=== PATIENT | male | born 1955 | race Caucasian/White ===

== ENCOUNTER → 2022-01-28 15:21 | Outpatient (CLI) | payer MEDICARE, OTHER, SELFPAY | PROVIDERS: PCP Family Medicine; Visit Provider Urology | DX: R31.29 Other microscopic hematuria (principal); R82.81 Pyuria; R39.9 Unspecified symptoms and signs involving the genitourinary system; Z87.440 Personal history of urinary (tract) infections; Z86.19 Personal history of other infectious and parasitic diseases; Z87.898 Personal history of other specified conditions; Z80.42 Family history of malignant neoplasm of prostate | CPT/HCPCS: 51798; 81002; 87086; 99214 ==

== ENCOUNTER → 2022-02-01 10:37 | Outpatient (CLI) | payer MEDICARE, OTHER, SELFPAY ==
[2022-02-01 11:52] LABS: BUN Creatinine Ratio 22.8 (6-22); Blood Urea Nitrogen 23 mg/dL (9-20); Calcium 9.6 mg/dL (8.4-10.2); Carbon Dioxide 29 mmol/L (22-32); Chloride 98 mmol/L (98-107); Estimated Glomerular Filt Rate > 60 mL/min (>60); Glucose 203 mg/dL (80-110); HEMOLYSIS < 15 (0-50); Potassium 4.9 mmol/L (3.4-5.1); Sodium 138 mmol/L (137-145)
== END ==
PROVIDERS: PCP Family Medicine; Referring Provider Urology; Visit Provider Urology
DX: R31.29 Other microscopic hematuria (principal)
CPT/HCPCS: 36415; 80048

== ENCOUNTER → 2022-02-01 10:39 | Outpatient (CLI) | payer MEDICARE, OTHER, SELFPAY ==
--- NOTE | 2022-02-01 12:00 | DI.CT.S_ITS ---
PROCEDURE: CT ABDOMEN PELVIS WO/W CON INDICATIONS: Microscopic hematuria and persistent urinary tract infection TECHNIQUE: Optional 5 mm thick noncontrast images acquired from the diaphragm to the symphysis pubis. After the administration of intravenous contrast, 5 mm thick images acquired from the diaphragm to the symphysis pubis after a 10-minute delay. 2 mm thick coronal and sagittal reformats were then performed of the kidneys and ureters. For radiation dose reduction, the following was used: automated exposure control, adjustment of mA and/or kV according to patient size. COMPARISON: None. FINDINGS: Image quality: Excellent. Lung bases: Lung bases are clear. Mild cardiomegaly. At least moderate coronary artery calcifications. Urinary system: Both kidneys are normal in size, without hydronephrosis or nephrolithiasis on pre-contrast images. No perinephric fat stranding. There is normal bilateral renal enhancement. Renal calyces appear normal in morphology when filled with contrast. Opacified portions of both ureters demonstrate normal caliber. There is minimal or no bladder wall thickening. There is a large bladder stone which measures 1.5 x 2.2 cm in diameter. It has Hounsfield measurement is 530. Prostate is enlarged. Other solid organs: Liver is normal in size and enhancement. Diffuse fatty infiltration of the liver. Gallbladder is unremarkable without calcified gallstones. . Biliary system is non dilated. Pancreas enhances normally. Spleen is normal in size and enhancement. No adrenal nodules. Peritoneum and bowel: Bowel loops demonstrate normal wall thickness and caliber. Mild diverticulosis without evidence of diverticulitis. No free fluid or air. Nodes and vessels: No retroperitoneal or mesenteric adenopathy by size criteria. Aorta and inferior vena cava are normal in size. Abdominal wall: No ventral hernias. Pelvis: No pathologic free pelvic fluid. No inguinal hernias or adenopathy. Bones: No suspicious bony lesions. No vertebral body compression fractures. IMPRESSION: 1. No renal stone, ureteral stone, hydronephrosis, or findings suspicious for malignancy. 2. Despite the fact that there is minimal or no bladder wall thickening, there is a large calcified bladder stone. 3. Enlarged prostate. 4. Diffuse hepatic steatosis. 5. Mild cardiomegaly, moderate coronary artery calcifications. Dictated by: Prem Hernandez M.D. on 02/01/2022 at 15:47 Approved by: Prem Hernandez M.D. on 02/01/2022 at 15:52
== END ==
PROVIDERS: PCP Family Medicine; Referring Provider Urology; Visit Provider Urology
DX: N39.0 Urinary tract infection, site not specified (principal); N21.0 Calculus in bladder; R31.29 Other microscopic hematuria; N40.0 Benign prostatic hyperplasia without lower urinary tract symptoms; K76.0 Fatty (change of) liver, not elsewhere classified; I51.7 Cardiomegaly; I25.10 Atherosclerotic heart disease of native coronary artery without angina pectoris
CPT/HCPCS: 36415; 74178; 80048; Q9967

== ENCOUNTER → 2022-02-02 13:56 | Outpatient (CLI) | payer MEDICARE, OTHER, SELFPAY ==
[2022-02-02 14:14] LABS: Appearance Urine UA SL CLOUDY; Bilirubin Urine UA NEGATIVE (NEGATIVE); Color Urine UA YELLOW; Glucose Urine UA NEGATIVE (Negative); Ketones Urine UA NEGATIVE (NEGATIVE); Leukocyte Esterase Urine UA 2+ (NEGATIVE); Nitrite Urine UA POSITIVE (Negative); Occult Blood Urine UA TRACE-INTACT (Negative); Protein Urine UA TRACE (Negative); Urobilinogen Urine UA 0.2 E.U./dL (0.2); pH Urine UA 6.5 (4.5-8.0)
[2022-02-02 14:33] LABS: Bacteria Urine Many (>30); Culture Indicated Urine Specimen Cultured; RBC Urine 0-1/HPF (0-5/HPF); WBC Urine 30-100/HPF (0-5/HPF)
== END ==
PROVIDERS: PCP Family Medicine; Referring Provider Urology; Visit Provider Urology
DX: R31.29 Other microscopic hematuria (principal)
CPT/HCPCS: 81001; 87086

== ENCOUNTER → 2022-02-10 11:06 | Outpatient (CLI) | payer MEDICARE, OTHER, SELFPAY ==
[2022-02-10 11:24] LABS: Appearance Urine UA SL CLOUDY; Bilirubin Urine UA NEGATIVE (NEGATIVE); Color Urine UA YELLOW; Glucose Urine UA TRACE g/dL (Negative); Ketones Urine UA NEGATIVE (NEGATIVE); Leukocyte Esterase Urine UA 1+ (NEGATIVE); Nitrite Urine UA POSITIVE (Negative); Occult Blood Urine UA 3+ (Negative); Protein Urine UA TRACE (Negative); Urobilinogen Urine UA 0.2 E.U./dL (0.2)
[2022-02-10 11:45] LABS: Bacteria Urine Many (>30); Culture Indicated Urine Specimen Cultured; RBC Urine 10-30/HPF (0-5/HPF); Squamous Epithelial Cell Urine 0-1 /HPF (0-5/HPF); WBC Urine 30-100/HPF (0-5/HPF)
== END ==
PROVIDERS: PCP Family Medicine; Visit Provider Specialist
DX: R31.29 Other microscopic hematuria (principal)
CPT/HCPCS: 81001; 87086

== ENCOUNTER → 2022-02-22 13:08 | Outpatient (CLI) | payer MEDICARE, OTHER, SELFPAY ==
[2022-02-22 17:32] LABS: COVID19 -Nasal RAPID Negative (Negative)
== END ==
PROVIDERS: PCP Family Medicine; Visit Provider Urology
DX: Z20.822 Contact with and (suspected) exposure to COVID-19 (principal)
CPT/HCPCS: 87635; C9803

== ENCOUNTER 2022-02-23 10:41 | Day surgery (SDC) | payer MEDICARE, OTHER, SELFPAY ==
[2022-02-18 08:21] VITALS: BMI 35.9
[2022-02-23 11:32] VITALS: BP 175/83; PULSE 73; RESP 20; TEMP 36.6; O2SAT 99; BMI 35.9
[2022-02-23] MEDS: LACTATED RINGERS 1,000 ML 21 ML IV ×2 (11:48→13:15)
--- NOTE | 2022-02-23 12:11 | PM.PREOP ---
Pre-operative Note COVID-19 COVID-19 status: Negative Result date/Date tested (Pos, Neg/Pending): 02/22/22 Criteria for continued procedure: Delay expected to result in less-positive ultimate med/surg outcome and Non-surgical alternatives not available or appropriate per current SOC Interval Note History & Physical reviewed/Exam performed by Physician: Yes Changes to H&P: No
[2022-02-23] MEDS: CEFAZOLIN 2 GM/100 ML PREMIX 100 ML IV (12:41)
--- NOTE | 2022-02-23 13:04 | SUR.OPER ---
Lithotomy on padded OR bed, head on pillow, arms secured on padded arm boards at <90 degrees abduction. Legs secured in padded yellow fins stirrups.
--- NOTE | 2022-02-23 13:53 | PM.OP.1 ---
Procedure & Clinicians Procedure: Laser cystolitholapaxy, dilation of urethral stricture Same procedure as scheduled: No (Patient was found to have a stricture which was unknown prior to the proced) Indications: This 66-year-old male presented with complaints of hematuria. Through imaging was found to have a large bladder calculus and presents at this time for cystolitholapaxy. (patient was found to have a stricture which was easily dilated with the scope as it was passed) Surgeon: Breezy Rodriguez Click Yes if Unassisted: Yes Anesthesia Type: General Operative Notes Findings: Findings: Urethral meatus was normal the urethra was normal till the distal to mid bulbar urethra where there was a fairly tight stricture which was easily dilated with the scope under direct vision. The prostate showed obstructive character with what appeared to be a fairly large median lobe. Ureteral orifices in normal position with clear efflux single large bladder calculus was noted with severe trabeculation and cellules no other mucosal lesions were noted. Closure Type: not applicable Specimen(s): other (Bladder calculus fragments for compositional analysis) Applied: catheter (22 Estonian 5 cc all silicone catheter) Estimated Blood Loss (mL): 5 Blood products transfused: none Procedure in detail: Procedure in detail: After informed consent was obtained the patient was identified and brought to the operating room. Patient was placed in a supine position on the table and anesthesia was induced and maintained. Ensuring an adequate level of anesthesia the patient was transitioned to the lithotomy position where he was prepped, draped, prepared for Transurethral procedure. After time-out and ensuring an adequate level of anesthesia the continuous flow laser scope was passed to the level of the stricture and then given the diaphanous appearance of the stricture was gently passed through the stricture and to the level of the sphincter. Scope was then passed through the prostate and into the bladder. Cystoscopy was performed laser fiber was inserted and laser energy delivered to the stone fragmenting it. This continued till there were no large fragments which would not pass through the scope. The fragments were then evacuated the were only fine dust which was adherent to the mucosa was left. Cystoscopy was once again performed with a 30 and 70 degree lens, ureteral orifices were intact with clear efflux, there were no large pieces of stone left.. Bladder was left full the scope was removed and a 22 [place]ian 5 cc all silicone catheter was easily passed into the bladder with the balloon was filled with 10 cc of sterile water and the catheter was placed to gravity drainage. The patient was awakened having tolerated the procedure well there were no complications Complications: none Post-operative Condition: stable Disposition: PACU Plan for aftercare: Patient will follow-up in my office next week for a voiding trial on Tuesday
[2022-02-23 14:04] VITALS: BP 142/64; PULSE 77; RESP 16; TEMP 36.6; O2SAT 94
[2022-02-23 14:09] VITALS: BP 135/72; PULSE 81; RESP 16; O2SAT 93
[2022-02-23 14:14] VITALS: BP 149/72; PULSE 79; RESP 16; O2SAT 93
[2022-02-23 14:24] VITALS: BP 137/70; PULSE 77; RESP 18; TEMP 36.4; O2SAT 93
[2022-02-23 14:30] VITALS: BP 158/87; PULSE 83; RESP 18; TEMP 36.6; O2SAT 92
[2022-03-01 16:46] LABS: Size 5x5 mm (.); Uric Acid 100 % (.)
== END 2022-02-23 15:14 | disposition home or self-care (01) ==
PROVIDERS: PCP Family Medicine; Referring Provider Urology; Visit Provider Urology
PROC: 0TCB8ZZ Extirpation of Matter from Bladder, Via Natural or Artificial Opening Endoscopic (ICD-10-PCS; CPT 52318; principal; 2022-02-23 12:30)
DX: N21.0 Calculus in bladder (principal); N35.912 Unspecified bulbous urethral stricture, male
CPT/HCPCS: 52318; 82365; 82962; J0690; J1100; J2250; J2405; J2704; J3010

== ENCOUNTER → 2024-03-01 14:34 | Outpatient (CLI) | payer MEDICARE, OTHER, SELFPAY ==
--- NOTE | 2024-03-01 14:35 | DI.RAD.S_ITS ---
PROCEDURE: XR KUB INDICATIONS: kidney stone TECHNIQUE: One view of the abdomen acquired. COMPARISON: [facility], , CT KUB, 01/21/2023, 9:49. Findings and impression: No calcified stone projecting over the renal fossa. Consider CT KUB for increased sensitivity if needed. There is increased fecal loading. Round densities project over the pelvis, indeterminate, possibly stool. Degenerative osseous changes. Dictated by: Eliel Arroyo M.D. on 03/01/2024 at 16:43 Approved by: Eliel Arroyo M.D. on 03/01/2024 at 16:45
== END ==
PROVIDERS: Referring Provider Urology; Visit Provider Urology
DX: R39.9 Unspecified symptoms and signs involving the genitourinary system (principal); N21.0 Calculus in bladder; Z87.442 Personal history of urinary calculi; Z80.42 Family history of malignant neoplasm of prostate; Z87.898 Personal history of other specified conditions
CPT/HCPCS: 36415; 74018; 84153

== ENCOUNTER → 2024-03-12 15:28 | Outpatient (CLI) | payer MEDICARE, OTHER, SELFPAY ==
--- NOTE | 2024-03-12 15:32 | DI.MRI.S_ITS ---
PROCEDURE: MR PELVIC PROSTATE PROTOCOL INDICATIONS: Elevated PSA family history prostate cancer TECHNIQUE: Coronal HASTE, axial T1 FSE with fat saturation, 3-plane nonbreath-hold T2 FSE. After the administration of contrast, dynamic axial, delayed axial and coronal VIBE or 2-D FLASH with fat saturation through the pelvis. Diffusion weighted imaging and ADC was performed. COMPARISON: None. FINDINGS: Image quality: Diffusion weighted and dynamic contrast enhanced images are diagnostic. Prostate: Gland size is 5.2 x 4.8 x 5.4 cm; ellipsoid gland volume is 70 mL. PSA density of 0.11, not suspicious. Wedge-shaped hypoattenuation the peripheral zone in the mid gland to apex, without restricted diffusion or significant abnormality on ADC sequence; findings likely indicate prostatitis. Hypertrophy of the transition zone with encapsulated and partially encapsulated nodules. Genitourinary system: Bladder wall thickness is normal. Distal ureters are non distended. Bowel and peritoneum: No pathologic free pelvic fluid. Inferior colon and small bowel loops are normal in caliber. Nodes and vessels: No pelvic or inguinal adenopathy by size criteria. Iliac vessels are normal in caliber. Soft tissues: No inguinal hernias. Bones: Marrow demonstrates normal overall signal, without lesions to suggest metastases. IMPRESSION: Suspected prostatitis. No PI-RADS 3 through 5 lesions. No pelvic lymphadenopathy by size criteria. No aggressive osseous abnormality. Dictated by: Jovan Valencia M.D. on 03/13/2024 at 14:06 Approved by: Jovan Valencia M.D. on 03/13/2024 at 14:10
== END ==
PROVIDERS: Referring Provider Urology; Visit Provider Urology
DX: N21.0 Calculus in bladder (principal); R97.20 Elevated prostate specific antigen [PSA]
CPT/HCPCS: 72197; A9579

== ENCOUNTER → 2024-05-03 14:03 | Outpatient (CLI) | payer MEDICARE, OTHER, SELFPAY | PROVIDERS: Referring Provider Urology; Visit Provider Urology | DX: R97.20 Elevated prostate specific antigen [PSA] (principal); Z80.42 Family history of malignant neoplasm of prostate | CPT/HCPCS: 36415; 84153; 84154 ==

== ENCOUNTER → 2024-08-07 11:06 | Outpatient (CLI) | payer MEDICARE, OTHER, SELFPAY ==
[2024-08-09 07:09] LABS: PSA Free % 17.6 % (.)
== END ==
PROVIDERS: Referring Provider Urology; Visit Provider Urology
DX: R97.20 Elevated prostate specific antigen [PSA] (principal)
CPT/HCPCS: 36415; 84153; 84154

== ENCOUNTER → 2025-02-20 15:06 | Outpatient (CLI) | payer MEDICARE, OTHER, SELFPAY | PROVIDERS: Referring Provider Urology; Visit Provider Urology | DX: R97.20 Elevated prostate specific antigen [PSA] (principal) | CPT/HCPCS: 36415; 84153; 84154 ==

== ENCOUNTER → 2025-03-05 15:16 | Outpatient (CLI) | payer MEDICARE, OTHER, SELFPAY | PROVIDERS: Visit Provider Urology | DX: R39.9 Unspecified symptoms and signs involving the genitourinary system (principal); R31.29 Other microscopic hematuria | CPT/HCPCS: 87086 ==